=== PATIENT | male | born 1975 | race Caucasian/White ===

== ENCOUNTER 2022-04-17 22:16 | Observation (INO) ==
[2022-04-17] MEDS ORDERED: LACTATED RINGERS 1,000 ML IV ONE (22:26)
[2022-04-17 22:47] LABS: POC Creatinine 1.1 (0.6-1.2); POC Potassium 2.9 (3.3-5.1)
[2022-04-17] MEDS ORDERED: 0.9 % SODIUM CHLORIDE 1,000 ML IV ONE (22:54)
[2022-04-17] MEDS ORDERED: LORazepam 2 MG/ML VIAL IV ONE ×2 (23:07→23:16)
[2022-04-17] MEDS ORDERED: levETIRAcetam 1,000 MG in 0.9 % SODIUM CHLORIDE 100 ML IV ONE (23:17)
[2022-04-17] MEDS ORDERED: LORazepam 2 MG/ML VIAL ONE (23:19)
[2022-04-17] MEDS ORDERED: POTASSIUM CHLORIDE 40 MEQ in DEXTROSE 5% IN WATER 500 ML IV ONE (23:21)
[2022-04-17 23:39] LABS: ALT/SGPT 20 U/L (<40); AST/SGOT 25 U/L (<40); Albumin 3.6 gm/dL (3.2-5.2); Albumin/Globulin Ratio 1.8 (1.0-2.3); Alkaline Phosphatase 68 U/L (39-117); Bilirubin,Total 0.4 mg/dL (0.1-1.0); Blood Urea Nitrogen 6 mg/dL (6-20); Calcium 7.6 mg/dL (8.6-10.4); Carbon Dioxide 24 mmol/L (22-30); Chloride 88 mmol/L (96-108); Creatine Kinase 315 U/L (24-195); Glomerular Filtration Rate 101; Glucose 92 mg/dL (70-105)
[2022-04-17] MEDS ORDERED: POTASSIUM CHLORIDE 40 MEQ/20 ML VIAL IV ONE (23:46)
[2022-04-18] MEDS ORDERED: ONDANSETRON 4 MG/2 ML VIAL IV ONE (00:08)
--- NOTE | 2022-04-18 00:33 | Emergency Department Note ---
HPI General Chief complaint: Dizziness Stated complaint: "To much sun" Time Seen by Provider: 04/17/22 22:25 Source: patient Mode of arrival: wheelchair Limitations: no limitations History of Present Illness HPI Narrative: Narrative: 47-year-old male history of seizure disorder on Vimpat, schizoaffective, migraines, traumatic brain injury presenting to the ED thinking he may have dehydration and heat exhaustion. He says he was "tanning in the sun all day" and drank a lot of iced tea but says afterwards he started to feel dizzy when he stood up and a bit lightheaded. No chest pain or shortness of breath no fever no chills no vision change no focal neurologic complaint. No recent seizures, denies any illicit or alcohol use, other than recently switching to generic Vimpat no other medication changes. No other complaints. Related Data Home Medications Medication Instructions Recorded Confirmed lacosamide 200 mg tablet (Vimpat) 200 mg PO BID 09/04/17 02/26/18 codeine 10 mg-guaifenesin 100 mg/5 10 ml PO Q4HP 04/17/22 04/17/22 mL oral liquid (Guaiatussin AC) gabapentin 300 mg capsule 1 cap PO TID 04/17/22 04/17/22 gabapentin 300 mg capsule 1 cap PO TID 04/17/22 04/17/22 nortriptyline 10 mg capsule 3 cap PO HS 04/17/22 04/17/22 Allergies Allergy/AdvReac Type Severity Reaction Status Date / Time marijuana (cannabis) Allergy Severe Unknown Verified 04/17/22 22:21 [marijuana] topiramate AdvReac Intermediate Headache Verified 04/17/22 22:21 and Tinnitus gadolidium Allergy Intermediate Hives Uncoded 04/20/16 10:09 Review of Systems ROS ROS Narrative: Narrative: All systems ED: reviewed and negative except as stated. FORMERLY [facility], [facility] Narrative Patient History Narrative: Narrative: Medical/Surgical/Family History All Active Problems (Updated 04/18/22 @ 03:10 by Taras Spivey DO) Heat exposure (Acute) Seizure (Acute) Acute hyponatremia (Acute) Aspiration pneumonitis (Acute) Hypovitaminosis D (Chronic) Tobacco use (Chronic) H/O colonoscopy (Chronic) H/O abdominal surgery (Chronic) Bowel disease (Chronic) Stomach ulcer (Chronic) Accident (Chronic) Seizure (Chronic) Migraines (Chronic) Insomnia (Chronic) Schizoaffective disorder (Chronic) Agoraphobia (Chronic) Anxiety (Chronic) Muscle pain (Chronic) Chronic joint pain (Chronic) Medical History Accident Agoraphobia Anxiety Bowel disease Chronic joint pain Insomnia Migraines Muscle pain Schizoaffective disorder Seizure Stomach ulcer Tobacco use Surgical History H/O abdominal surgery H/O colonoscopy Family History Father Arthritis Malignant neoplasm Borderline diabetes mellitus Cluster headaches Grandmother-paternal Arthritis Malignant neoplasm Grandfather-paternal Malignant neoplasm Great aunt-paternal Dementia Mother Essential hypertension Cluster headaches Disorder of thyroid Grandmother Essential hypertension Uncle Essential hypertension Myocardial Infarction Great grandparents-paternal Myocardial Infarction Sisters Cluster headaches Brother Seizure Disorder of thyroid Cousins Seizure Great grandfather Cerebrovascular accident (CVA) Social History Smoking Status: Current every day smoker Alcohol Intake Frequency: a few times a month Substance Use: former substance user, marijuana, crack/cocaine and other Exam Narrative Narrative: Narrative: Constitutional: normally developed, a bit disheveled appearing nontoxic vital stable Head: Normocephalic, atraumatic, Eyes: No Icterus, no rotary or vertical nystagmus PERRLA EOMI ENT: Mildly dry mucus membranes, Neck: Supple, Cardiac: Normal heart sounds, palpable radial pulses, no peripheral edema Pulmonary: Normal respiratory effort. Breath sounds clear, no wheeze, rhonchi, rales, Gastrointestinal: Abdomen soft, non-distended, non-tender, Musculoskeletal: No gross deformities, well perfused Skin: warm, dry Neuro: Alert and oriented. Face symmetric, PERRLA, EOMI, visual yun intact, symmetric sensation in face, bilateral upper and lower extremities. No drift in extremities, no abuoug-os-apur ataxia, symmetric motor strength in bilateral upper and lower extremities, no aphasia, no dysarthria. NIH 0 General Limitations: no limitations Course Vital Signs Vital signs: Vital Signs Temperature 36.8 C 04/17/22 22:17 Pulse Rate 77 04/17/22 22:17 Respiratory Rate 15 04/17/22 22:17 Blood Pressure 113/73 04/17/22 22:17 Pulse Oximetry (%) 100 04/17/22 22:17 Oxygen Delivery Method 04/17/22 22:17 Temperature 36.8 C 04/17/22 22:17 Pulse Rate 71 04/18/22 06:46 Respiratory Rate 18 04/18/22 06:46 Blood Pressure 98/60 04/18/22 06:46 Pulse Oximetry (%) 96 04/18/22 06:46 Oxygen Delivery Method 04/18/22 05:45 Oxygen Flow Rate (L/min) 3 04/18/22 05:45 MDM MDM Narrative Medical decision making narrative: Narrative: Patient presenting concerned about heat exposure dehydration says he was "tanning all day", thought he was drinking plenty of water but following this he says he felt achy fatigued lightheaded and dizzy when he stood up. Work-up is initiated does not appear severely dehydrated he is not febrile he is not altered. Nonfocal neurologic exam. Did give him a bolus of saline Twelve-lead EKG sinus rhythm 77 MS, QTc within normal, no ischemia or arrhythmia noted, nonspecific IVCD While awaiting workup he did have a witnessed ~ 30sec tonic-clonic seizure witnessed by the nurse, did have urinary incontinence . When I got into the room it had just stopped, we did immediately suction him and placed him on oxygen& temporarily placed a nasal trumpet. Did give him 1 of Ativan IV and will load him with 1 g of Keppra. Close reevaluation initially postictal but slowly improving as expected, nonfocal repeat exam otherwise Electrolytes did result with several abnormalities he is hyponatremic 123, hypochloremic in the 80s, hypokalemic 3, with otherwise normal anion gap normal bicarb normal renal function normal glucose LFTs bilirubin normal CPK only minimally elevated 315 Troponin negative Further reevaluation he is once again alert no new complaints. Although he is hyponatremic it is still above 120s and seems less likely the cause of his seizure, he has a known seizure disorder and it seems more likely related to his epilepsy, do not feel hypertonic saline indicated at this time. We will obtain a CT of his head, also he has become hypoxic following that seizure episode although stable on 4L nasal cannula, suspect he may have aspirated, will obtain an x-ray X-ray per my interpretation shows diffuse haziness I suspect this is likely some aspiration pneumonitis following his witnessed seizure. bnp normal and no clinical findings to suggest CHF. CT head no acute findings Further reevaluation patient remains completely oriented, has been resting comfortably, is beginning to feel much better throughout the remainder of his ED stay/observation. Remains on nasal cannula, have been able to wean it down to [address] Wilburn who accepts admission, will repeat Chem-8 to trend K, sodium Lab Data Result diagrams: 04/17/22 23:17 04/17/22 23:17 Labs: Lab Results 04/17/22 04/17/22 04/17/22 Range/Units 22:43 23:17 23:17 WBC (4.5-11.0) K/mcL RBC (4.63-6.08) M/mcL Hgb (13.7-17.5) g/dL Hct (40.1-51.0) % POC Hct 34.0 L (41-55) MCV (80.0-100.0) fL MCH (26.0-34.0) pg MCHC (31.0-36.0) g/dL RDW (11.5-14.5) % Plt Count (140-440) K/mcL MPV (7.4-10.4) fL Immature Gran % (Auto) (0.0-0.5) % Neut % (Auto) (38.0-78.0) % Lymph % (Auto) (15.5-49.0) % [place] % (Auto) (1.0-12.0) % Eos % (Auto) (0.0-7.0) % Baso % (Auto) (0.0-2.0) % Lymph # (Auto) (1.50-4.80) K/mcL [place] # (Auto) (0.10-0.90) K/mcL Eos # (Auto) (0.00-0.70) K/mcL Baso # (Auto) (0.00-0.30) K/mcL Immature Gran # (0.00-0.05) K/mcl Absolute Neutrophils (1.80-8.00) K/mcL POC Sodium 124 L (133-145) Sodium 123 L (133-145) mmol/L POC Potassium 2.9 L* (3.3-5.1) Potassium 3.0 L (3.3-5.1) mmol/L POC Chloride 87 L (96-108) Chloride 88 L (96-108) mmol/L Carbon Dioxide 24 (22-30) mmol/L POC Total CO2 24.0 (22-30) Anion Gap 11.0 (8.0-16.0) POC BUN 6 (6-20) BUN 6 (6-20) mg/dL Creatinine 0.9 (0.7-1.2) mg/dL POC Creatinine 1.1 (0.6-1.2) GFR Calculation 101 Glucose 92 (70-105) mg/dL POC Glucose 93 (70-105) Calcium 7.6 L (8.6-10.4) mg/dL POC WB Ioniz Calcium 1.00 L (1.16-1.32) Magnesium (1.6-2.5) mg/dL Total Bilirubin 0.4 (0.1-1.0) mg/dL AST 25 (<40) U/L ALT 20 (<40) U/L Alkaline Phosphatase 68 (39-117) U/L Total Creatine Kinase 315 H (24-195) U/L NT-Pro-B Natriuret Pep 29.0 (<125.0) pg/mL Total Protein 5.6 L (5.9-8.4) gm/dL Albumin 3.6 (3.2-5.2) gm/dL Globulin 2.0 L (2.2-3.7) gm/dL Albumin/Globulin Ratio 1.8 (1.0-2.3) Urine Opiates Screen Ur Opiates Confirm Ur Oxycodone Screen U Oxycod/Oxymor Confirm Urine Methadone Screen Ur Methadone Confirm Ur Barbiturates Screen Ur Barbiturate Confirm Ur Phencyclidine Scrn Urine PCP Confirm Ur Amphetamines Screen U Amphetamines Confirm U Benzodiazepines Scrn Ur Benzodiazepine, Qnt Urine Cocaine Screen Urine Cocaine Confirm U Cannabinoids Confirm U Marijuana (THC) Screen Ethyl Alcohol mg/dL mg/dL Ethyl Alcohol g/dL (<0.010) gm/dL POC Troponin I (0.02-0.08) 04/17/22 04/17/22 04/17/22 Range/Units 23:17 23:28 23:30 WBC 16.0 H (4.5-11.0) K/mcL RBC 3.50 L (4.63-6.08) M/mcL Hgb 11.2 L (13.7-17.5) g/dL Hct 33.1 L (40.1-51.0) % POC Hct (41-55) MCV 94.6 (80.0-100.0) fL MCH 32.0 (26.0-34.0) pg MCHC 33.8 (31.0-36.0) g/dL RDW 13.0 (11.5-14.5) % Plt Count 251 (140-440) K/mcL MPV 10.2 (7.4-10.4) fL Immature Gran % (Auto) 0.6 H (0.0-0.5) % Neut % (Auto) 66.1 (38.0-78.0) % Lymph % (Auto) 23.4 (15.5-49.0) % [place] % (Auto) 7.8 (1.0-12.0) % Eos % (Auto) 1.8 (0.0-7.0) % Baso % (Auto) 0.3 (0.0-2.0) % Lymph # (Auto) 3.74 (1.50-4.80) K/mcL [place] # (Auto) 1.25 H (0.10-0.90) K/mcL Eos # (Auto) 0.28 (0.00-0.70) K/mcL Baso # (Auto) 0.04 (0.00-0.30) K/mcL Immature Gran # 0.09 H (0.00-0.05) K/mcl Absolute Neutrophils 10.57 H (1.80-8.00) K/mcL POC Sodium (133-145) Sodium (133-145) mmol/L POC Potassium (3.3-5.1) Potassium (3.3-5.1) mmol/L POC Chloride (96-108) Chloride (96-108) mmol/L Carbon Dioxide (22-30) mmol/L POC Total CO2 (22-30) Anion Gap (8.0-16.0) POC BUN (6-20) BUN (6-20) mg/dL Creatinine (0.7-1.2) mg/dL POC Creatinine (0.6-1.2) GFR Calculation Glucose (70-105) mg/dL POC Glucose (70-105) Calcium (8.6-10.4) mg/dL POC WB Ioniz Calcium (1.16-1.32) Magnesium 1.6 (1.6-2.5) mg/dL Total Bilirubin (0.1-1.0) mg/dL AST (<40) U/L ALT (<40) U/L Alkaline Phosphatase (39-117) U/L Total Creatine Kinase (24-195) U/L NT-Pro-B Natriuret Pep (<125.0) pg/mL Total Protein (5.9-8.4) gm/dL Albumin (3.2-5.2) gm/dL Globulin (2.2-3.7) gm/dL Albumin/Globulin Ratio (1.0-2.3) Urine Opiates Screen Ur Opiates Confirm Ur Oxycodone Screen U Oxycod/Oxymor Confirm Urine Methadone Screen Ur Methadone Confirm Ur Barbiturates Screen Ur Barbiturate Confirm Ur Phencyclidine Scrn Urine PCP Confirm Ur Amphetamines Screen U Amphetamines Confirm U Benzodiazepines Scrn Ur Benzodiazepine, Qnt Urine Cocaine Screen Urine Cocaine Confirm U Cannabinoids Confirm U Marijuana (THC) Screen Ethyl Alcohol mg/dL mg/dL Ethyl Alcohol g/dL (<0.010) gm/dL POC Troponin I 0.01 L (0.02-0.08) 04/18/22 04/18/22 Range/Units 04:39 22:43 WBC (4.5-11.0) K/mcL RBC (4.63-6.08) M/mcL Hgb (13.7-17.5) g/dL Hct (40.1-51.0) % POC Hct (41-55) MCV (80.0-100.0) fL MCH (26.0-34.0) pg MCHC (31.0-36.0) g/dL RDW (11.5-14.5) % Plt Count (140-440) K/mcL MPV (7.4-10.4) fL Immature Gran % (Auto) (0.0-0.5) % Neut % (Auto) (38.0-78.0) % Lymph % (Auto) (15.5-49.0) % [place] % (Auto) (1.0-12.0) % Eos % (Auto) (0.0-7.0) % Baso % (Auto) (0.0-2.0) % Lymph # (Auto) (1.50-4.80) K/mcL [place] # (Auto) (0.10-0.90) K/mcL Eos # (Auto) (0.00-0.70) K/mcL Baso # (Auto) (0.00-0.30) K/mcL Immature Gran # (0.00-0.05) K/mcl Absolute Neutrophils (1.80-8.00) K/mcL POC Sodium (133-145) Sodium (133-145) mmol/L POC Potassium (3.3-5.1) Potassium (3.3-5.1) mmol/L POC Chloride (96-108) Chloride (96-108) mmol/L Carbon Dioxide (22-30) mmol/L POC Total CO2 (22-30) Anion Gap (8.0-16.0) POC BUN (6-20) BUN (6-20) mg/dL Creatinine (0.7-1.2) mg/dL POC Creatinine (0.6-1.2) GFR Calculation Glucose (70-105) mg/dL POC Glucose (70-105) Calcium (8.6-10.4) mg/dL POC WB Ioniz Calcium (1.16-1.32) Magnesium (1.6-2.5) mg/dL Total Bilirubin (0.1-1.0) mg/dL AST (<40) U/L ALT (<40) U/L Alkaline Phosphatase (39-117) U/L Total Creatine Kinase (24-195) U/L NT-Pro-B Natriuret Pep (<125.0) pg/mL Total Protein (5.9-8.4) gm/dL Albumin (3.2-5.2) gm/dL Globulin (2.2-3.7) gm/dL Albumin/Globulin Ratio (1.0-2.3) Urine Opiates Screen None detected Ur Opiates Confirm TNP Ur Oxycodone Screen None detected U Oxycod/Oxymor Confirm TNP Urine Methadone Screen None detected Ur Methadone Confirm TNP Ur Barbiturates Screen None detected Ur Barbiturate Confirm TNP Ur Phencyclidine Scrn None detected Urine PCP Confirm TNP Ur Amphetamines Screen None detected U Amphetamines Confirm TNP U Benzodiazepines Scrn None detected Ur Benzodiazepine, Qnt TNP Urine Cocaine Screen None detected Urine Cocaine Confirm TNP U Cannabinoids Confirm TNP U Marijuana (THC) Screen None detected Ethyl Alcohol mg/dL < 10.0 mg/dL Ethyl Alcohol g/dL < 0.010 (<0.010) gm/dL POC Troponin I (0.02-0.08) Discharge Plan Patient/Caregiver Discharge Instructions Pt seen by PATIENT CLERICAL ASSISTANT/PA only: No Clinical Impression: Seizure, Acute hyponatremia, Aspiration pneumonitis, Heat exposure Patient Disposition: Xfer As Inpt ([facility]) Condition: Fair Follow up with: Herlinda Monge NP-C [Primary Care Provider] - Prescriptions: No Action lacosamide [Vimpat] 200 mg tablet 200 mg PO BID gabapentin 300 mg capsule 1 cap PO TID gabapentin 300 mg capsule 1 cap PO TID nortriptyline 10 mg capsule 3 cap PO HS codeine-guaifenesin [Guaiatussin AC] 10-100 mg/5 mL liquid 10 ml PO Q4HP
[2022-04-18 00:55] LABS: Alcohol, Blood < 10.0 mg/dL; Alcohol,Blood < 0.010 gm/dL (<0.010)
[2022-04-18] MEDS ORDERED: 0.9 % SODIUM CHLORIDE 1,000 ML IV SCH ×2 (01:15→13:14)
[2022-04-18 02:08] LABS: Basophils # (Auto) 0.04 K/mcL (0.00-0.30); Basophils % (Auto) 0.3 % (0.0-2.0); Eosinophils # (Auto) 0.28 K/mcL (0.00-0.70); Eosinophils % (Auto) 1.8 % (0.0-7.0); Hematocrit 33.1 % (40.1-51.0); Hemoglobin 11.2 g/dL (13.7-17.5); Lymphocytes # (Auto) 3.74 K/mcL (1.50-4.80); Lymphocytes % (Auto) 23.4 % (15.5-49.0); Mean Cell Volume 94.6 fL (80.0-100.0); Mean Corpuscular HGB Conc 33.8 g/dL (31.0-36.0); Mean Platelet Volume 10.2 fL (7.4-10.4); Monocytes # (Auto) 1.25 K/mcL (0.10-0.90); Monocytes % (Auto) 7.8 % (1.0-12.0); Neutrophils % (Auto) 66.1 % (38.0-78.0); Platelet Count 251 K/mcL (140-440)
[2022-04-18 05:34] LABS: Amphetamine Screen,Urine None detected; Barbiturate Screen,Urine None detected; Benzodiazepines Screen,Urine None detected; Cannabinoid Screen,Urine None detected; Cocaine Screen,Urine None detected; Opiate Screen,Urine None detected; Oxycodone, Urine Screen None detected; Phencyclidine Screen,Urine None detected
--- NOTE | 2022-04-18 07:58 | XRay Report ---
CLINICAL INFORMATION: Seizure hypoxia COMPARISON: 08/23/2017 chest x-ray and chest CT 08/31/2017 TECHNIQUE: Portable FINDINGS: The heart size, mediastinum and pulmonary vessels are unremarkable. Known moderate centrilobular emphysema changes again noted. Diffuse interstitial disease developed throughout both lungs that more prominent in the right lung. There are no effusions. Moderate pleural parenchymal scarring left lung base again seen. IMPRESSION: Diffuse interstitial disease throughout both lungs, more prominent right lung, developing since the 2017 remote plain film. This finding has a broad differential diagnosis including edema and inflammatory causes. Consider chest CT Interpreted and Authenticated by: Rohit Ramirez 04/18/22
--- NOTE | 2022-04-18 08:08 | Cat Scan Report ---
CLINICAL INFORMATION: Seizures and dizziness COMPARISON: Brain MRI 01/01/2016 TECHNIQUE: 2.5 mm helical slices were obtained in the skull base to vertex. Following reconstruction, axial reformatted images were reviewed at bone and parenchymal windows. The exam was performed using radiation dose optimization techniques including, but not limited to, automated exposure control, adjustment of the mA and/or kV according to patient size and use of iterative reconstruction technique. FINDINGS: Mild atrophy of both anterior frontal lobes with gliosis in the parafalcine inferior frontal lobes seen-as before. The ventricles, sulci, fissures, and cisterns are, otherwise, normal in size and configuration. No extra-axial fluid collections are identified. The cerebrum, brainstem and cerebellum are, otherwise, unremarkable. There is no evidence of hemorrhage, mass effect, or edema. Bone windows show no osseous abnormality. IMPRESSION: Mild bifrontal atrophy with gliosis in the inferior perifalcine frontal lobe region similar to brain MRI over six years prior. This is likely related to remote trauma. There is no intracerebral hemorrhage or other acute finding. Interpreted and Authenticated by: Rohit Ramirez 04/18/22
--- NOTE | 2022-04-18 08:12 | EKG ---
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 Measurements Intervals Sparks Rate: 77 P: 67 ID: [id number] QRS: 30 QRSD: 128 T: 55 QT: 393 QTc: 445 Interpretive Statements Sinus rhythm INCOMPLETE RIGHT MARLEY BRANCH BLOCK Electronically Signed On 04-18-2022 8:11:53 PDT by Rohit Young M.D. /store/M0/[id number]
[2022-04-18] MEDS ORDERED: ONDANSETRON 4 MG/2 ML VIAL IV PRN (08:16)
--- NOTE | 2022-04-18 08:46 | Internal Med History&Physical ---
HPI History of Present Illness Patient information: Seizure, hypoxia in the EDNote initiated : 04/18/22 at 8:46 am Service Date, if different from initiated Date: [] Patient: Sergio Trevino 47 y/o M admitted on 04/18/22 for "To much sun". Chief Complaint: [] History of present illness: Mr. Trevino is a 47 year old M with a history of epilepsy, schizoaffective disorder, anxiety, history of traumatic brain injury who presented to the ED with complaints of head spinning. History is obtained speaking to the patient as well as patient's . The patient has a history of seizures characterized by confusion, a spinning/lightheadedness and a tendency with at times loss of sense of time. He has been maintained on Vimpat 200 mg twice daily with good seizure control for the last few years. He was recently changed to generic dosing of Vimpat, and since then his is noted that he has had a couple nights with headache which has occurred with his seizure disorder. He is also become hypersensitive to stimuli. On the day prior to presenting to the ED the evening of 04/17, the patient spent most of the day out in the sun. He did come in later that day, took a shower and had evening dinner. Was out in the sun he drank about a gallon of sun tea. That evening while sitting and watching TV, he felt his head spinning, he was grabbing his head. He continued to feel poorly until telling his that he wanted to come to the emergency department (which is quite unusual as he has agoraphobia and does not like being around hospitals). In the ED, labs revealed a sodium of 123, potassium at 2.9. He has been given IV fluids. He then had a generalized tonic-clonic seizure. It is been ongoing for about 20 seconds when his alerted nursing, overall his estimated to last 40 to 50 seconds. Post seizure he was postictal. He was loaded with Keppra and received a milligram of IV lorazepam. He was aspirated during this event, he required up to 6 LPM (though his tells me he was on a facemask for a while) and had been titrated down to 3 LPM by this morning. I was contacted early on 04/18 for admission for further monitoring of the postictal phase, treatment of hypoxia and evaluation and treatment of hyponatremia. Review of Systems Review of systems: Limited review of systems, patient denies headache, dyspnea, cough or sputum production, chest pain, dizziness/lightheadedness. The remainder of a 10 point review of systems is not available due to the patient's mental status. PFSH PFSH All Active Problems (Updated 04/18/22 @ 03:10 by Taras Spivey DO) Heat exposure (Acute) Seizure (Acute) Acute hyponatremia (Acute) Aspiration pneumonitis (Acute) Hypovitaminosis D (Chronic) Tobacco use (Chronic) H/O colonoscopy (Chronic) H/O abdominal surgery (Chronic) Bowel disease (Chronic) Stomach ulcer (Chronic) Accident (Chronic) Seizure (Chronic) Migraines (Chronic) Insomnia (Chronic) Schizoaffective disorder (Chronic) Agoraphobia (Chronic) Anxiety (Chronic) Muscle pain (Chronic) Chronic joint pain (Chronic) Medical History Accident Agoraphobia Anxiety Bowel disease Chronic joint pain Insomnia Migraines Muscle pain Schizoaffective disorder Seizure Stomach ulcer Tobacco use Surgical History H/O abdominal surgery H/O colonoscopy Family History Father Arthritis Malignant neoplasm Borderline diabetes mellitus Cluster headaches Grandmother-paternal Arthritis Malignant neoplasm Grandfather-paternal Malignant neoplasm Great aunt-paternal Dementia Mother Essential hypertension Cluster headaches Disorder of thyroid Grandmother Essential hypertension Uncle Essential hypertension Myocardial Infarction Great grandparents-paternal Myocardial Infarction Sisters Cluster headaches Brother Seizure Disorder of thyroid Cousins Seizure Great grandfather Cerebrovascular accident (CVA) Social History (Updated 02/26/18 @ 09:45 by Elie Jennings MD) marital status: smoking status: Current every day smoker tobacco type: cigarettes per day: 15 pack-years: 15 alcohol intake frequency: a few times a month substance use type: former substance user, marijuana, crack/cocaine and other details: pills MEDS/ALLERGIES Home Medications and Allergies Home Medications Medication Instructions Recorded Confirmed Type gabapentin 300 mg capsule 2 cap PO QAM 04/17/22 04/18/22 History gabapentin 300 mg capsule See Rx Instructions .Route .COMPLEX 04/17/22 04/18/22 History alprazolam 0.5 mg tablet 0.5 - 1 tab PO TIDP PRN anxiety 04/18/22 04/18/22 History ibuprofen 800 mg tablet 1 tab PO TID PRN Pain 04/18/22 04/18/22 History lacosamide 200 mg tablet (Vimpat) 200 mg PO BID 04/18/22 04/18/22 History nortriptyline 25 mg capsule 50 mg PO QHS 04/18/22 04/18/22 History Allergies Allergy/AdvReac Type Severity Reaction Status Date / Time marijuana (cannabis) Allergy Unknown Unknown Verified 04/18/22 07:28 [marijuana] topiramate AdvReac Mild Headache Verified 04/18/22 07:28 and Tinnitus gadolidium Allergy Mild Hives Uncoded 04/18/22 07:28 EXAM Constitutional Vitals: Temp Pulse Resp BP Pulse Ox O2 Del Method O2 Flow Rate 98.3 F 74 20 112/71 100 3 04/18/22 07:01 04/18/22 07:47 04/18/22 07:47 04/18/22 07:47 04/18/22 07:47 04/18/22 07:01 04/18/22 07:01 GENERAL: Groggy but arousable, in mild distress. HEENT: Atraumatic. Pupils equal at 3 mm, conjunctiva clear, no scleral icterus. Hearing grossly intact. Face symmetric. Oropharynx with moist mucous membranes. Tongue midline, palate rises symmetrically. NECK: Supple without meningismus, no thyromegaly RESPIRATORY: Breath with crackles in the left lower lung field that do not clear with deep inspiration. No wheezes, no rhonchi. No accessory muscle use. CARDIOVASCULAR: Regular rate and rhythm, no murmur gallop or rub. No peripheral edema. Carotid pulses 2+, pedal pulses 2+. GI: Abdomen soft, nontender, no guarding or rebound. Bowel sounds are present. MUSCULOSKELETAL: No joint erythema or swelling, normal range of motion in all extremities. SKIN: Intact, warm, dry. Skin turgor normal. NEUROLOGIC: Cranial nerves II through XII grossly intact (VF not assessed). Muscle mass normal. Strength 5/5 in the upper and lower extremities. Sensation intact to light touch bilaterally. PSYCHIATRIC: Groggy, oriented to person, place and situation. Displays insight into condition. DATA Data Completed and Pending Labs: Labs from last 24 hours 04/18/22 04/18/22 04/17/22 22:43 04:39 23:30 WBC RBC Hgb Hct POC Hct MCV MCH MCHC RDW Plt Count MPV Immature Gran % (Auto) Neut % (Auto) Lymph % (Auto) [place] % (Auto) Eos % (Auto) Baso % (Auto) Lymph # (Auto) [place] # (Auto) Eos # (Auto) Baso # (Auto) Immature Gran # Absolute Neutrophils POC Sodium Sodium POC Potassium Potassium POC Chloride Chloride Carbon Dioxide POC Total CO2 Anion Gap POC BUN BUN Creatinine POC Creatinine GFR Calculation Glucose POC Glucose Calcium POC WB Ioniz Calcium Magnesium Total Bilirubin AST ALT Alkaline Phosphatase Total Creatine Kinase NT-Pro-B Natriuret Pep Total Protein Albumin Globulin Albumin/Globulin Ratio Urine Opiates Screen None detected Ur Opiates Confirm TNP Ur Oxycodone Screen None detected U Oxycod/Oxymor Confirm TNP Urine Methadone Screen None detected Ur Methadone Confirm TNP Ur Barbiturates Screen None detected Ur Barbiturate Confirm TNP Ur Phencyclidine Scrn None detected Urine PCP Confirm TNP Ur Amphetamines Screen None detected U Amphetamines Confirm TNP U Benzodiazepines Scrn None detected Ur Benzodiazepine, Qnt TNP Urine Cocaine Screen None detected Urine Cocaine Confirm TNP U Cannabinoids Confirm TNP U Marijuana (THC) Screen None detected Ethyl Alcohol mg/dL < 10.0 Ethyl Alcohol g/dL < 0.010 POC Troponin I 0.01 L 04/17/22 04/17/22 04/17/22 23:28 23:17 23:17 WBC 16.0 H RBC 3.50 L Hgb 11.2 L Hct 33.1 L POC Hct MCV 94.6 MCH 32.0 MCHC 33.8 RDW 13.0 Plt Count 251 MPV 10.2 Immature Gran % (Auto) 0.6 H Neut % (Auto) 66.1 Lymph % (Auto) 23.4 [place] % (Auto) 7.8 Eos % (Auto) 1.8 Baso % (Auto) 0.3 Lymph # (Auto) 3.74 [place] # (Auto) 1.25 H Eos # (Auto) 0.28 Baso # (Auto) 0.04 Immature Gran # 0.09 H Absolute Neutrophils 10.57 H POC Sodium Sodium POC Potassium Potassium POC Chloride Chloride Carbon Dioxide POC Total CO2 Anion Gap POC BUN BUN Creatinine POC Creatinine GFR Calculation Glucose POC Glucose Calcium POC WB Ioniz Calcium Magnesium 1.6 Total Bilirubin AST ALT Alkaline Phosphatase Total Creatine Kinase NT-Pro-B Natriuret Pep 29.0 Total Protein Albumin Globulin Albumin/Globulin Ratio Urine Opiates Screen Ur Opiates Confirm Ur Oxycodone Screen U Oxycod/Oxymor Confirm Urine Methadone Screen Ur Methadone Confirm Ur Barbiturates Screen Ur Barbiturate Confirm Ur Phencyclidine Scrn Urine PCP Confirm Ur Amphetamines Screen U Amphetamines Confirm U Benzodiazepines Scrn Ur Benzodiazepine, Qnt Urine Cocaine Screen Urine Cocaine Confirm U Cannabinoids Confirm U Marijuana (THC) Screen Ethyl Alcohol mg/dL Ethyl Alcohol g/dL POC Troponin I 04/17/22 04/17/22 23:17 22:43 WBC RBC Hgb Hct POC Hct 34.0 L MCV MCH MCHC RDW Plt Count MPV Immature Gran % (Auto) Neut % (Auto) Lymph % (Auto) [place] % (Auto) Eos % (Auto) Baso % (Auto) Lymph # (Auto) [place] # (Auto) Eos # (Auto) Baso # (Auto) Immature Gran # Absolute Neutrophils POC Sodium 124 L Sodium 123 L POC Potassium 2.9 L* Potassium 3.0 L POC Chloride 87 L Chloride 88 L Carbon Dioxide 24 POC Total CO2 24.0 Anion Gap 11.0 POC BUN 6 BUN 6 Creatinine 0.9 POC Creatinine 1.1 GFR Calculation 101 Glucose 92 POC Glucose 93 Calcium 7.6 L POC WB Ioniz Calcium 1.00 L Magnesium Total Bilirubin 0.4 AST 25 ALT 20 Alkaline Phosphatase 68 Total Creatine Kinase 315 H NT-Pro-B Natriuret Pep Total Protein 5.6 L Albumin 3.6 Globulin 2.0 L Albumin/Globulin Ratio 1.8 Urine Opiates Screen Ur Opiates Confirm Ur Oxycodone Screen U Oxycod/Oxymor Confirm Urine Methadone Screen Ur Methadone Confirm Ur Barbiturates Screen Ur Barbiturate Confirm Ur Phencyclidine Scrn Urine PCP Confirm Ur Amphetamines Screen U Amphetamines Confirm U Benzodiazepines Scrn Ur Benzodiazepine, Qnt Urine Cocaine Screen Urine Cocaine Confirm U Cannabinoids Confirm U Marijuana (THC) Screen Ethyl Alcohol mg/dL Ethyl Alcohol g/dL POC Troponin I Imaging and Cardiology CT scan - head: Additional comments: IMPRESSION: Mild bifrontal atrophy with gliosis in the inferior perifalcine frontal lobe region similar to brain MRI over six years prior. This is likely related to remote trauma. There is no intracerebral hemorrhage or other acute finding. Chest x-ray: Status: image reviewed by me Additional comments: IMPRESSION: Diffuse interstitial disease throughout both lungs, more prominent right lung, developing since the 2017 remote plain film. This finding has a broad differential diagnosis including edema and inflammatory causes. Consider chest CT A/P Narrative A/P Narrative: 47-year-old male with history of seizure disorder, remote traumatic brain injury, schizoaffective disorder, agoraphobia presents to the ED with a "spinning" sensation, similar to prior partial seizures. This is in the setting of recent change in Vimpat from trade to generic as well as being in the sun all day. Subsequently had generalized tonic-clonic seizure in the ED. Epilepsy with generalized tonic-clonic seizure -Baseline seizure disorder or partial complex seizures with sensation of confusion, lightheadedness/spinning and atony. -No history of generalized tonic-clonic seizure previously according to his -Recently changed from trade Vimpat to the generic preparation with recurrence of some symptoms of his partial seizure symptoms -Suspect the generalized tonic-clonic seizure may be multifactorial, underlying seizure disorder, lowered seizure threshold due to significant hyponatremia -No further seizures noted following load of Keppra Aspiration with hypoxia/acute hypoxic respiratory failure -Patient was noted to have an aspiration event during his seizure -May represent aspiration pneumonitis and not infection -Oxygen demands have improved -Chest x-ray abnormal, will need repeat follow-up to ensure clearing of diffuse findings Hyponatremia -Suspect this is multifactorial: spending the day outdoors in the 100+ degree weather and subsequent dehydration consuming large volume of replacement fluids that were low in solute (sun tea) -Improved after initial fluids in the ED, thus do not feel 3% saline indicated at this time -Suspect this is more of an acute hyponatremia given the clinical history -However will follow and avoid over correcting too rapidly unless further neurologic symptoms arise Hypokalemia -We will need repleted Plan: -Hospitalize on observation -Gentle IV fluids -Follow serum sodium -Resume trade version of Vimpat (patient's has brought him) -Seizure precaution -Continue supplemental oxygen wean as able -Follow-up chest x-ray tomorrow Discussed with Dr. Bond, his neurologist CODE STATUS: Full code DVT prophylaxis: Enoxaparin
[2022-04-18] MEDS ORDERED: ALPRAZolam 0.5 MG TABLET PO PRN (08:49)
[2022-04-18] MEDS ORDERED: levETIRAcetam 1,000 MG in 0.9 % SODIUM CHLORIDE 100 ML IV SCH (09:00)
[2022-04-18] MEDS ORDERED: GABAPENTIN 300 MG CAPSULE PO SCH (09:00)
[2022-04-18 09:28] LABS: Basophils # (Auto) 0.02 K/mcL (0.00-0.30); Basophils % (Auto) 0.1 % (0.0-2.0); Eosinophils # (Auto) 0.13 K/mcL (0.00-0.70); Eosinophils % (Auto) 0.8 % (0.0-7.0); Hematocrit 31.4 % (40.1-51.0); Hemoglobin 10.7 g/dL (13.7-17.5); Lymphocytes # (Auto) 2.11 K/mcL (1.50-4.80); Lymphocytes % (Auto) 13.7 % (15.5-49.0); Mean Cell Volume 95.2 fL (80.0-100.0); Mean Corpuscular HGB Conc 34.1 g/dL (31.0-36.0); Monocytes # (Auto) 0.97 K/mcL (0.10-0.90); Monocytes % (Auto) 6.3 % (1.0-12.0); Neutrophils % (Auto) 78.6 % (38.0-78.0); Platelet Count 240 K/mcL (140-440); Red Cell Distribution Width 12.8 % (11.5-14.5); WBC 15.4 K/mcL (4.5-11.0)
[2022-04-18 09:39] LABS: Blood Urea Nitrogen 6 mg/dL (6-20); Calcium 7.1 mg/dL (8.6-10.4); Carbon Dioxide 24 mmol/L (22-30); Chloride 96 mmol/L (96-108); Glomerular Filtration Rate 101; Glucose 105 mg/dL (70-105); Phosphorous 2.6 mg/dL (2.5-4.5)
[2022-04-18] MEDS: VIMPAT 200 MG PO SCH ×2 (10:12→22:18)
[2022-04-18] MEDS: GABAPENTIN 300 MG CAPSULE PO SCH ×3 (10:13→22:19)
[2022-04-18] MEDS: ACETAMINOPHEN 325 MG TABLET PO PRN ×2 (11:20→20:00)
[2022-04-18] MEDS: DOCUSATE SODIUM 100 MG CAPSULE PO SCH ×2 (11:21→22:19)
[2022-04-18] MEDS: ENOXAPARIN 40 MG/0.4 ML SYRINGE SQ SCH (11:21)
[2022-04-18] MEDS: 0.9 % SODIUM CHLORIDE 10 ML SYRINGE IV SCH ×2 (13:50→22:00)
[2022-04-18] MEDS ORDERED: NORTRIPTYLINE 10 MG CAPSULE PO SCH (21:00)
[2022-04-18] MEDS ORDERED: NORTRIPTYLINE 25 MG CAPSULE PO SCH (21:00)
[2022-04-18] MEDS ORDERED: SENNOSIDES 1 TABLET PO SCH (21:00)
[2022-04-19 07:03] LABS: Blood Urea Nitrogen 7 mg/dL (6-20); Calcium 8.1 mg/dL (8.6-10.4); Carbon Dioxide 20 mmol/L (22-30); Chloride 110 mmol/L (96-108); Glomerular Filtration Rate 89; Glucose 94 mg/dL (70-105)
--- NOTE | 2022-04-19 09:22 | Discharge Summary ---
Discharge Provider Provider IMPORTANT FOLLOW-UP INFORMATION FOR PCP: Patient information: Note initiated : 04/19/22 at 9:21 am Service Date, if different from initiated Date: [] Patient: Sergio Trevino 47 y/o M admitted on 04/18/22 for Heat exhaustion, dehydration. Chief Complaint: [] Date of admission: 04/18/22 08:06 Discharge date: 04/19/22 Primary care physician: Herlinda Monge NP Admitting clinician: Laurel Fan Consults: 04/18/22 Consult to Physician [CONS] Stat Comment: Consulting Provider: Laurel Fan Reason For Exam: Physician to Consult Discharging clinician: Laurel Fan COURSE Hospital Course Hospital course: Presentation: Mr. Trevino is a 47 year old M with a history of epilepsy, schizoaffective disorder, anxiety, history of traumatic brain injury who presented to the ED with complaints of head spinning. History is obtained speaking to the patient as well as patient's . The patient has a history of seizures characterized by confusion, a spinning/lightheadedness and a tendency with at times loss of sense of time. He has been maintained on Vimpat 200 mg twice daily with good seizure control for the last few years. He was recently changed to generic dosing of Vimpat, and since then his is noted that he has had a couple nights with headache which has occurred with his seizure disorder. He is also become hypersensitive to stimuli. On the day prior to presenting to the ED the evening of 04/17, the patient spent most of the day out in the sun. He did come in later that day, took a shower and had evening dinner. Was out in the sun he drank about a gallon of sun tea. That evening while sitting and watching TV, he felt his head spinning, he was grabbing his head. He continued to feel poorly until telling his that he wanted to come to the emergency department (which is quite unusual as he has agoraphobia and does not like being around hospitals). In the ED, labs revealed a sodium of 123, potassium at 2.9. He has been given IV fluids. He then had a generalized tonic-clonic seizure. It is been ongoing for about 20 seconds when his alerted nursing, overall his estimated to last 40 to 50 seconds. Post seizure he was postictal. He was loaded with Keppra and received a milligram of IV lorazepam. He was aspirated during this event, he required up to 6 LPM (though his tells me he was on a facemask for a while) and had been titrated down to 3 LPM by this morning. I was contacted early on 04/18 for admission for further monitoring of the postictal phase, treatment of hypoxia and evaluation and treatment of hyponatremia. Course: The patient received gentle hydration during his hospitalization, sodiums slowly increased and had normalized by the time of discharge. Patient was awake and alert. He no longer required oxygen. He is ambulatory in his room without symptoms. The time of discharge his lungs were clear. He had no further seizure activity. I discussed the case with his neurologist, who agreed it was likely a combination of hyponatremia in the setting of pre-existing epilepsy that cause the generalized tonic-clonic seizure. No changes in his seizure medications were made. Issues outstanding at discharge: Change back to trade Vimpat from generic Follow-up chest x-ray in convalescence to see if changes noted on admission had cleared following resolution of aspiration pneumonitis Discharge diagnosis: Generalized tonic-clonic seizure Secondary discharge diagnosis: Hyponatremiaresolved Aspiration pneumonitisresolved Partial complex seizure disorder, no changes to medications Time Spent with Patient Time attestation: Total time spent providing and/or coordinating discharge services: Time spent: Greater than 30 minutes EXAM Constitutional Vitals: Temp Pulse Resp BP Pulse Ox O2 Del Method O2 Flow Rate 97.8 F 83 18 122/72 95 2 04/19/22 08:00 04/19/22 08:00 04/19/22 08:00 04/19/22 08:00 04/19/22 08:00 04/19/22 08:00 04/18/22 11:44 GENERAL: Awake, alert, no acute distress RESPIRATORY: Clear bilaterally, no rales, respirations are unlabored CARDIOVASCULAR: Regular rate and rhythm ABDOMEN: Soft, nontender EXTREMITIES: No edema NEURO: Alert, oriented x4, ambulatory Discharge Data Data Completed and Pending Labs on day of discharge: Labs from last 24 hours 04/19/22 04/18/22 04/18/22 05:23 16:21 07:19 WBC RBC Hgb Hct MCV MCH MCHC RDW Plt Count MPV Immature Gran % (Auto) Neut % (Auto) Lymph % (Auto) [place] % (Auto) Eos % (Auto) Baso % (Auto) Lymph # (Auto) [place] # (Auto) Eos # (Auto) Baso # (Auto) Immature Gran # Absolute Neutrophils Sodium 140 134 127 L Potassium 4.0 4.6 4.0 Chloride 110 H 96 Carbon Dioxide 20 L 24 Anion Gap 10.0 7.0 L BUN 7 6 Creatinine 1.0 0.9 GFR Calculation 89 101 Glucose 94 105 Calcium 8.1 L 7.1 L Phosphorus 2.6 Albumin 3.0 L 04/18/22 07:19 WBC 15.4 H RBC 3.30 L Hgb 10.7 L Hct 31.4 L MCV 95.2 MCH 32.4 MCHC 34.1 RDW 12.8 Plt Count 240 MPV 10.0 Immature Gran % (Auto) 0.5 Neut % (Auto) 78.6 H Lymph % (Auto) 13.7 L [place] % (Auto) 6.3 Eos % (Auto) 0.8 Baso % (Auto) 0.1 Lymph # (Auto) 2.11 [place] # (Auto) 0.97 H Eos # (Auto) 0.13 Baso # (Auto) 0.02 Immature Gran # 0.07 H Absolute Neutrophils 12.08 H Sodium Potassium Chloride Carbon Dioxide Anion Gap BUN Creatinine GFR Calculation Glucose Calcium Phosphorus Albumin Impressions Impressions: CT scan - head: IMPRESSION: Mild bifrontal atrophy with gliosis in the inferior perifalcine frontal lobe region similar to brain MRI over six years prior. This is likely related to remote trauma. There is no intracerebral hemorrhage or other acute finding. Chest x-ray: IMPRESSION: Diffuse interstitial disease throughout both lungs, more prominent right lung, developing since the 2017 remote plain film. This finding has a broad differential diagnosis including edema and inflammatory causes. Consider chest CT Discharge Plan Patient/Caregiver Discharge Instructions Activity: resume usual activities as tolerated Diet: Regular Diet Activity Restrictions/Additional Instructions: Ask your PCP about a repeat chest x-ray to make sure changes from aspiration have resolved. Prescriptions: Continued gabapentin 300 mg capsule 2 cap PO QAM gabapentin 300 mg capsule See Rx Instructions .ROUTE .COMPLEX Rx Instructions: 1 cap orally At 1700 and 2200 lacosamide [Vimpat] 200 mg Tablet 200 mg PO BID Rx Instructions: cannot use generic nortriptyline 25 mg Capsule 50 mg PO QHS ibuprofen 800 mg tablet 1 tab PO TID PRN (Reason: Pain) alprazolam 0.5 mg tablet 0.5 - 1 tab PO TIDP PRN (Reason: anxiety) Follow Up Plan Follow up with: Herlinda Monge NP-C [Primary Care Provider] - (Please contact office to maddy mathews a follow-up appointment.) Patient Disposition: Home, Self-Care Prognosis: Good Overall status at discharge: patient is back to baseline Discharge Orders: Discharge Order (Routine); Ordered 04/19/22 Ordered By: Laurel CROWE VTE Deep Vein Thrombosis/Pulmonary Embolism Present on Admission: No
[2022-04-19] MEDS: GABAPENTIN 300 MG CAPSULE PO SCH (10:03)
[2022-04-19] MEDS: ENOXAPARIN 40 MG/0.4 ML SYRINGE SQ SCH (10:03)
[2022-04-19] MEDS: VIMPAT 200 MG PO SCH (10:04)
[2022-04-19] MEDS: ACETAMINOPHEN 325 MG TABLET PO PRN (10:04)
[2022-04-19] MEDS: 0.9 % SODIUM CHLORIDE 10 ML SYRINGE IV SCH (11:46)
== END 2022-04-19 11:12 | disposition home or self-care (01) ==
LOC: MEDSUR 22:16 → ED 22:16 → MEDSUR 04-18 08:05
PROVIDERS: ADMIT Internal Medicine; ATTEND Internal Medicine